=== PATIENT | male | born 1970 | race Hispanic/Latino ===

== ENCOUNTER 2016-10-17 02:54 | Emergency (ER) | payer OTHER ==
--- NOTE | 2016-10-17 03:00 | C.PDOC ---
History Of Present Illness Patient presents to the ER with a complaint of nausea and vomiting. Patient reports eating chicken at lunch followed by rosanna later on in the day; he states he has vomited numerous times and continues to feel nauseated. Denies abdominal pain or diarrhea. Time Seen by Provider: 10/17/16 03:00 History Per: Patient History/Exam Limitations: no limitations Onset/Duration Of Symptoms: Hrs Current Symptoms Are (Timing): Still Present Radiation Of Pain To:: None Quality Of Discomfort: Unable To Describe Associated Symptoms: Nausea, Vomiting. denies: Fever, Chills, Diarrhea Exacerbating Factors: None Alleviating Factors: None Recent travel outside of the [place]: No Past Medical History Reviewed: Historical Data, Nursing Documentation, Vital Signs Vital Signs: Last Vital Signs Temp 97.8 F 10/17/16 05:19 Pulse 56 L 10/17/16 05:19 Resp 18 10/17/16 05:19 BP 102/66 10/17/16 05:19 Pulse Ox 98 10/17/16 05:19 - Medical History PMH: No Chronic Diseases Surgical History: No Surg Hx Family History: States: No Known Family Hx - Social History Hx Tobacco Use: No Hx Alcohol Use: No Hx Substance Use: No - Immunization History Hx Tetanus Toxoid Vaccination: No Hx Influenza Vaccination: No Hx Pneumococcal Vaccination: No Review Of Systems Constitutional: Negative for: Fever, Chills Gastrointestinal: Positive for: Nausea, Vomiting. Negative for: Abdominal Pain , Diarrhea Physical Exam - Physical Exam Appears: Non-toxic Skin: Warm, Diaphoretic (Mildly), Pale (Mildly) Oral Mucosa: Moist Chest: Symmetrical, No Tenderness Cardiovascular: Rhythm Regular, No Murmur Respiratory: No Rales, No Rhonchi, No Wheezing Gastrointestinal/Abdominal: Soft, No Tenderness, Distention Neurological/Psych: Oriented x3 ED Course And Treatment - Laboratory Results Result Diagrams: 10/17/16 03:10 10/17/16 03:10 ECG: Interpreted By Me, Viewed By Me ECG Rhythm: Sinus Rhythm (47), Nonspecific Changes O2 Sat by Pulse Oximetry: 98 Pulse Ox Interpretation: Normal Progress Note: EKG, blood work, and urinalysis ordered. Toradol, zofran, protonix, and IV fluids administered. Disposition Counseled Patient/Family Regarding: Studies Performed, Diagnosis, Need For Followup, Rx Given - Disposition Referrals: [facility] [Outside] Disposition: HOME/ ROUTINE Disposition Time: 03:00 Condition: FAIR Additional Instructions: Please return if symptoms recur Prescriptions: Ondansetron ODT [Zofran ODT] 1 odt PO BID PRN #6 odt PRN Reason: Nausea/Vomiting Instructions: Food Poisoning (ED), Abdominal Pain (ED), Kidney Stones (DC) - Clinical Impression Clinical Impression: Abdominal pain, Nausea, Vomiting, Kidney stones - Scribe Statement The provider has reviewed the documentation as recorded by the Scribwilfrido Peña All medical record entries made by the Manishaibwilfrido were at my direction and personally dictated by me. I have reviewed the chart and agree that the record accurately reflects my personal performance of the history, physical exam, medical decision making, and the department course for this patient. I have also personally directed, reviewed, and agree with the discharge instructions and disposition.
[2016-10-17] MEDS ORDERED: Sodium Chloride 0.9% 1,000 ML IV ONE (03:01)
[2016-10-17 03:05] VITALS: BMI 24.5
[2016-10-17] MEDS ORDERED: Sodium Chloride 0.9% 1,000 ML ONE (03:09)
[2016-10-17 03:13] LABS: BASO # 0.1 K/uL (0.0-0.2); BASO % 0.8 % (0.0-2.0); EOS # 0.2 K/uL (0.0-0.7); EOS % 1.2 % (0.0-4.0); HEMATOCRIT 49.5 % (35.0-51.0); LYMPH # 5.7 K/uL (1.0-4.3); LYMPH % 39.6 % (20.0-40.0); MEAN CELL VOLUME 87.5 fL (80.0-94.0); MEAN CORPUSCULAR HEMOGLOBIN 28.4 pg (27.0-31.0); MEAN CORPUSCULAR HGB CONC 32.4 g/dL (33.0-37.0); MEAN PLATELET VOLUME 8.7 fL (7.2-11.7); MONO # 1.1 K/uL (0.0-0.8); MONO % 7.5 % (0.0-10.0); RED CELL DISTRIBUTION WIDTH 13.9 % (11.5-14.5); WHITE BLOOD COUNT 14.5 K/uL (4.8-10.8)
[2016-10-17 03:21] LABS: CHLORIDE 103 mmol/L (98-107); SODIUM 139 mmol/L (132-148)
[2016-10-17 03:22] LABS: POTASSIUM 3.2 mmol/L (3.6-5.2)
[2016-10-17 03:24] LABS: ALB/GLOB RATIO 1.2 (1.0-2.1); ALKALINE PHOSPHATASE 100 U/L (38-126); ALT/SGPT 36 U/L (21-72); AST/SGOT 19 U/L (17-59); BILIRUBIN,TOTAL 0.7 mg/dL (0.2-1.3); BLOOD UREA NITROGEN 15 mg/dL (9-20); CALCIUM 9.2 mg/dl (8.6-10.4); CARBON DIOXIDE 22 mmol/L (22-30); GFR AFRICAN-AMERICAN > 60; GLUCOSE,RANDOM 128 mg/dL (75-110); TOTAL PROTEIN 7.3 g/dL (6.3-8.3)
[2016-10-17] MEDS ORDERED: Iodixanol 320 MG/ML 100 ML BOTTLE IV ONE (04:25)
[2016-10-17 04:47] LABS: RBC URINE 28 /hpf (0-3); URINE BILIRUBIN NEGATIVE (NEGATIVE); URINE BLOOD 3+ (NEGATIVE); URINE COLOR Yellow (YELLOW); URINE GLUCOSE (UA) NORMAL (Normal); URINE KETONE NEGATIVE (NEGATIVE); URINE LEUKOCYTE ESTERASE NEG Leu/uL (Negative); URINE PROTEIN NEGATIVE (NEGATIVE); URINE UROBILINOGEN NORMAL mg/dL (0.2-1.0); WBC URINE 2 /hpf (0-5)
[2016-10-17 05:19] VITALS: BP 102/66; PULSE 56; RESP 18; TEMP 97.8; O2SAT 98
--- NOTE | 2016-10-17 05:27 | CT ---
EXAM: CT Abdomen and Pelvis With Intravenous Contrast EXAM DATE/TIME: 10/17/2016 4:12 AM CLINICAL HISTORY: 45 years old, male; Pain; Abdominal pain; Additional info: Abd pain, intractible vomiting TECHNIQUE: Axial computed tomography images of the abdomen and pelvis with intravenous contrast. All CT scans at this facility use one or more dose reduction techniques, viz.: automated exposure control; ma/kV adjustment per patient size (including targeted exams where dose is matched to indication; i.e. head); or iterative reconstruction technique. Coronal and sagittal reformatted images were created and reviewed. CONTRAST: 100 mL of [id number] administered intravenously. COMPARISON: No relevant prior studies available. FINDINGS: Lower thorax: No acute findings. ABDOMEN: Liver: Fatty liver. Gallbladder and bile ducts: Unremarkable. No calcified stones. No ductal dilation. Pancreas: Unremarkable. No mass. No ductal dilation. Spleen: Unremarkable. No splenomegaly. Adrenals: Unremarkable. No mass. Kidneys and ureters: Bilateral renal calculi of about 3 mm. No hydronephrosis. Symmetrical nephrograms. No perinephric edema. Stomach and bowel: Unremarkable. No dilatation of small or large bowel. No mucosal thickening. Appendix: Normal. PELVIS: Bladder: Tiny calcification in the dependent bladder. Reproductive: Unremarkable as visualized. ABDOMEN and PELVIS: Intraperitoneal space: Unremarkable. No free air. No significant fluid collection. Bones/joints: No acute fracture. Soft tissues: Unremarkable. Vasculature: Unremarkable. No abdominal aortic aneurysm. Lymph nodes: No enlarged lymph nodes. IMPRESSION: Bilateral renal and bladder calculi. No hydronephrosis.
--- NOTE | 2016-10-19 12:29 | CARD ---
APPROVED REPORT EKG Measurement Heart [id number] <Conclusion> Sinus bradycardia Otherwise normal ECG
== END 2016-10-17 05:48 | disposition home or self-care (01) ==
LOC: C.ER 02:54
DX: R11.2 Nausea with vomiting, unspecified (principal); R10.9 Unspecified abdominal pain; N20.0 Calculus of kidney
CPT/HCPCS: 74177; 80053; 81001; 83690; 85025; 93005; 96361; 96374; 96375; 99285; C9113; J1885; J2270; J2405; J7040; Q9967

== ENCOUNTER 2017-07-24 06:43 | Emergency (ER) | payer OTHER ==
[2017-07-24 06:44] VITALS: BMI 24.5
[2017-07-24 06:48] VITALS: O2SAT 98
--- NOTE | 2017-07-24 07:13 | C.PDOC ---
History Of Present Illness 46 y/o male presents to the ED for intermittent abdominal pain. Patient states the pain began 4-5 hours ago. He reports this is the third episode in 3 years. Patient describes the pain has bloating all over his belly. He states he has had 4 episodes of vomiting bile. Denies any dysuria or diarrhea. PMD: Dr. Calle Time Seen by Provider: 07/24/17 07:10 Chief Complaint (Nursing): Abdominal Pain History Per: Patient History/Exam Limitations: no limitations Onset/Duration Of Symptoms: Hrs Current Symptoms Are (Timing): Still Present Quality Of Discomfort: "Pain", Other (bloating) Associated Symptoms: Vomiting. denies: Diarrhea Recent travel outside of the [place]: No Past Medical History Reviewed: Historical Data, Nursing Documentation, Vital Signs Vital Signs: Last Vital Signs Temp 98.6 F 07/24/17 10:07 Pulse 67 07/24/17 10:07 Resp 18 07/24/17 10:07 BP 115/75 07/24/17 10:07 Pulse Ox 98 07/24/17 10:24 - Medical History PMH: No Chronic Diseases Surgical History: No Surg Hx Family History: States: No Known Family Hx - Social History Hx Tobacco Use: No Hx Alcohol Use: No Hx Substance Use: No - Immunization History Hx Tetanus Toxoid Vaccination: No Hx Influenza Vaccination: No Hx Pneumococcal Vaccination: No Review Of Systems Except As Marked, All Systems Reviewed And Found Negative. Gastrointestinal: Positive for: Vomiting, Abdominal Pain. Negative for: Diarrhea Genitourinary: Negative for: Dysuria Physical Exam - Physical Exam Appears: Non-toxic, No Acute Distress (vitals stable), Other (uncomfortable) Skin: Normal Color, Warm, Dry Head: Atraumatic, Normacephalic Eye(s): bilateral: Normal Inspection, PERRL, EOMI Cardiovascular: Rhythm Regular, No Murmur Respiratory: Normal Breath Sounds Gastrointestinal/Abdominal: Normal Exam, Soft, No Tenderness Neurological/Psych: Oriented x3 (awake and alert) ED Course And Treatment - Laboratory Results Result Diagrams: 07/24/17 07:41 07/24/17 07:41 ECG: Interpreted By Me, Viewed By Me Interpretation Of ECG: normal sinus rhthym, no st elevations or depressions Rate From EC O2 Sat by Pulse Oximetry: 98 (RA) Pulse Ox Interpretation: Normal Medical Decision Making Medical Decision Making: Time: 06:45 Impression: abdominal pain, distention constipation versus appendicitis versus gastroenteritis Initial Plan: * CMP * Drug Screen * Lipase Stat * CBC * IV Fluids * 1 tab PO * Maalox 30 ml PO * Abdomen Flat Plate * Urinalysis Previous records reviewed. Upon re-evaluation patient states he is feeling better but not great. Patient is requesting to be discharged. Instructed to drink lots of water and avoid soda , juice, bread, and rice. Was told to follow-up with PMD. Labs showed elevated white count and flat plate showed constipation. Scribe Attestation: Documented by Jack Lyman acting as a scribe Marcela Mcclellan MD. Scribwilfrido Attestation: All medical record entries made by the Scribe were at my direction and personally dictated by me. I have reviewed the chart and agree that the record accurately reflects my personal performance of the history, physical exam, medical decision making, and the department course for this patient. I have also personally directed, reviewed, and agree with the discharge instructions and disposition. Disposition Counseled Patient/Family Regarding: Studies Performed, Diagnosis, Need For Followup - Disposition Disposition: HOME/ ROUTINE Disposition Time: 10:17 Condition: STABLE Additional Instructions: You are leaving before your cat scan. Realize you have an elevated white blood cell count that could indicate infection. Please follow your doctor right away. Instructions: Constipation, Adult (DC) Forms: General Discharge Instructions - Clinical Impression Clinical Impression: Abdominal distension, Constipation
[2017-07-24] MEDS ORDERED: Sodium Chloride 0.9% 500 ML IV ONE (07:34)
[2017-07-24] MEDS ORDERED: Aluminum Hydroxide/Magnesium Hydroxide Susp (30 mL) PO STA (07:34)
[2017-07-24] MEDS ORDERED: Belladonna-Phenobarbital PO STA (07:34)
[2017-07-24] MEDS ORDERED: Belladonna-Phenobarbital ONE (07:48)
[2017-07-24] MEDS ORDERED: Aluminum Hydroxide/Magnesium Hydroxide Susp (30 mL) ONE (07:48)
[2017-07-24 07:49] LABS: BASO % 0.3 % (0.0-2.0); EOS % 0.1 % (0.0-4.0); HEMOGLOBIN 15.9 g/dL (12.0-18.0); LYMPH # 1.8 K/uL (1.0-4.3); LYMPH % 12.3 % (20.0-40.0); MEAN CELL VOLUME 89.2 fL (80.0-94.0); MEAN CORPUSCULAR HEMOGLOBIN 29.9 pg (27.0-31.0); MEAN CORPUSCULAR HGB CONC 33.6 g/dL (33.0-37.0); MEAN PLATELET VOLUME 9.4 fL (7.2-11.7); MONO # 0.7 K/uL (0.0-0.8); NEUT # 12.2 K/uL (1.8-7.0); NEUT % 82.3 % (50.0-75.0); NRBC % 0.1 % (0.0-2.0); RBC 5.31 Mil/uL (4.40-5.90); RED CELL DISTRIBUTION WIDTH 14.3 % (11.5-14.5); WHITE BLOOD COUNT 14.8 K/uL (4.8-10.8)
[2017-07-24] MEDS ORDERED: Iohexol 240 (50 ml) ONE (08:36)
--- NOTE | 2017-07-24 08:40 | RAD ---
Abdomen single frontal view History: Abdominal pain. Comparison: None available. Findings: Moderate fecal retention in the colon. Degenerative changes in the spine. Impression: Moderate fecal retention in the colon.
[2017-07-24 09:04] LABS: ALB/GLOB RATIO 1.2 (1.0-2.1); ALBUMIN 4.2 g/dL (3.5-5.0); ALT/SGPT 22 U/L (21-72); AST/SGOT 24 U/L (17-59); BLOOD UREA NITROGEN 14 mg/dL (9-20); GFR AFRICAN-AMERICAN > 60; GFR NON-AFRICAN AMERICAN > 60; LIPASE 81 U/L (23-300)
[2017-07-24 10:07] VITALS: BP 115/75; PULSE 67; RESP 18; TEMP 98.6
--- NOTE | 2017-07-27 13:45 | CARD ---
APPROVED REPORT EKG Measurement Heart [id number] <Conclusion> Normal sinus rhythm Normal ECG
== END 2017-07-24 10:38 | disposition home or self-care (01) ==
LOC: C.ER 06:43
DX: K59.00 Constipation, unspecified (principal); R14.0 Abdominal distension (gaseous)
CPT/HCPCS: 74018; 80053; 83690; 85025; 99284; J7040

== ENCOUNTER 2017-12-01 22:40 | Emergency (ER) | payer OTHER ==
[2017-12-01 22:41] VITALS: BMI 24.5
--- NOTE | 2017-12-01 23:04 | C.PDOC ---
History Of Present Illness 47 year old male presents to ED with complaints of fever beginning this afternoon with associated sore throat, cough and congestion. He reports yellow nasal mucus. Denies headache, ear pain, nausea, vomiting, SOB. Time Seen by Provider: 12/01/17 22:55 Chief Complaint (Nursing): Fever History Per: Patient History/Exam Limitations: no limitations Onset/Duration Of Symptoms: Hrs Current Symptoms Are (Timing): Still Present Location Of Pain: Throat, Sinus/es Associated Symptoms: Fever, Cough, Nasal Congestion Ear Symptoms: Bilateral: None Recent travel outside of the [place]: No Additional History Per: Patient Past Medical History Reviewed: Historical Data, Nursing Documentation, Vital Signs Vital Signs: Last Vital Signs Temp 101.6 F H 12/01/17 22:48 Pulse 117 H 12/01/17 22:48 Resp 19 12/01/17 22:48 BP 123/71 12/01/17 22:48 Pulse Ox 95 12/01/17 22:48 - Medical History PMH: Kidney Stones Surgical History: No Surg Hx Family History: States: Unknown Family Hx - Social History Hx Tobacco Use: No Hx Alcohol Use: No Hx Substance Use: No - Immunization History Hx Tetanus Toxoid Vaccination: No Hx Influenza Vaccination: Yes Hx Pneumococcal Vaccination: No Review Of Systems Constitutional: Positive for: Fever. Negative for: Chills ENT: Positive for: Nose Congestion, Throat Pain Respiratory: Positive for: Cough. Negative for: Shortness of Breath Gastrointestinal: Negative for: Nausea, Vomiting Skin: Negative for: Rash Neurological: Negative for: Headache, Dizziness Physical Exam - Physical Exam Appears: Non-toxic, No Acute Distress Skin: Normal Color, Warm, Dry Head: Atraumatic, Normacephalic Eye(s): bilateral: Normal Inspection Ear(s): Bilateral: Normal Nose: Other (nasal congestion) Oral Mucosa: Moist Throat: Normal, No Erythema, No Exudate Neck: Normal ROM, Supple Chest: Symmetrical Cardiovascular: Rhythm Regular Respiratory: Normal Breath Sounds, No Rales, No Rhonchi, No Wheezing, Other (dry cough) Extremity: Normal ROM, No Tenderness, No Swelling Neurological/Psych: Oriented x3, Normal Speech Gait: Steady ED Course And Treatment O2 Sat by Pulse Oximetry: 95 (ON RA) Pulse Ox Interpretation: Normal Medical Decision Making Medical Decision Making: Impression: fever, cough and congestion Tylenol given during triage. Patient appears well nontoxic and in no distress. Lungs clear bilaterally, no nuchal rigidity, or clinical signs of pneumonia or dehydration. Fever reduced. Advise patient on supportive treatment and to continue antipyretics. Can follow up with PMD in few days or return if symptoms worsen. Disposition Counseled Patient/Family Regarding: Diagnosis, Need For Followup, Rx Given - Disposition Referrals: Nathan Chapa MD [Medical Doctor] - Disposition: HOME/ ROUTINE Disposition Time: 23:02 Condition: STABLE Additional Instructions: You have viral upper respiratory infection. Take Tylenol or Motrin alternating every 4-6 hours for Fever 100.4F or higher. Rest and drink plenty of fluids. May use cool mist humidifier or vaporizer in room. Try taking over the counter antihistamine (Claritin, Joelle, Zyrtec), Decongestant or Cough medicine (Mucinex) as needed every 6-8 hours. If symptoms persist longer than 4-5 days follow up with your primary medical doctor or clinic for further evaluation. Return to the emergency department at any time if you develop severe headache, chest pain, shortness of breath or other concern Prescriptions: Benzonatate [Tessalon Perles] 100 mg PO TID #30 sgl Instructions: Viral Upper Respiratory Infection, Adult (DC) Forms: [facility] (Welsh), Work Excuse - POA Present On Arrival: None - Clinical Impression Clinical Impression: Fever, Upper respiratory infection - PA / ELECTION WATCHER / Resident Statement MD/DO has reviewed & agrees with the documentation as recorded. - Scribe Statement The provider has reviewed the documentation as recorded by the Scribe Brenton Carlson All medical record entries made by the Scribe were at my direction and personally dictated by me. I have reviewed the chart and agree that the record accurately reflects my personal performance of the history, physical exam, medical decision making, and the department course for this patient. I have also personally directed, reviewed, and agree with the discharge instructions and disposition.
[2017-12-01 23:21] VITALS: BP 127/79; PULSE 100; RESP 20; TEMP 99.5
[2017-12-02 00:09] VITALS: O2SAT 95
== END 2017-12-01 23:41 | disposition home or self-care (01) ==
LOC: C.ER 22:40
DX: J06.9 Acute upper respiratory infection, unspecified (principal); R50.9 Fever, unspecified

== ENCOUNTER 2018-04-04 15:46 | Emergency (ER) | payer OTHER ==
[2018-04-04 15:46] VITALS: BMI 24.5
[2018-04-04 15:52] VITALS: O2SAT 99
[2018-04-04] MEDS ORDERED: Sodium Chloride 0.9% 1,000 ML IV ONE ×2 (16:57→18:28)
[2018-04-04] MEDS ORDERED: Iohexol 350mg/ml 100 ML ONE (17:19)
[2018-04-04 17:24] LABS: BASO % 0.4 % (0.0-2.0); EOS % 0.3 % (0.0-4.0); HEMOGLOBIN 15.6 g/dL (12.0-18.0); LYMPH # 1.1 K/uL (1.0-4.3); LYMPH % 10.8 % (20.0-40.0); MEAN CELL VOLUME 90.1 fL (80.0-94.0); MEAN CORPUSCULAR HEMOGLOBIN 29.5 pg (27.0-31.0); MEAN CORPUSCULAR HGB CONC 32.7 g/dL (33.0-37.0); MEAN PLATELET VOLUME 9.3 fL (7.2-11.7); MONO # 1.2 K/uL (0.0-0.8); NEUT # 7.5 K/uL (1.8-7.0); NEUT % 76.5 % (50.0-75.0); RBC 5.28 Mil/uL (4.40-5.90); RED CELL DISTRIBUTION WIDTH 14.2 % (11.5-14.5); WHITE BLOOD COUNT 9.8 K/uL (4.8-10.8)
[2018-04-04 17:36] LABS: ALB/GLOB RATIO 1.3 (1.0-2.1); ALBUMIN 4.4 g/dL (3.5-5.0); ALT/SGPT 24 U/L (21-72); AST/SGOT 21 U/L (17-59); BLOOD UREA NITROGEN 21 mg/dL (9-20); CALCIUM 8.6 mg/dl (8.6-10.4); GFR NON-AFRICAN AMERICAN 59; LIPASE 85 U/L (23-300)
--- NOTE | 2018-04-04 18:04 | C.PDOC ---
History Of Present Illness 47 year old male presents to ED with complaint of experiencing vomiting episodes. Patient also complains of left sided back and abdominal pain. Patient states that he has dark urine with a foul smell. He has a history of kidney st ones. Patient took ibuprofen at home with no relief. He denies fever or chills. Time Seen by Provider: 04/04/18 16:18 Chief Complaint (Nursing): Abdominal Pain History Per: Patient History/Exam Limitations: no limitations, language barrier Onset/Duration Of Symptoms: Days (7) Current Symptoms Are (Timing): Still Present Location Of Pain/Discomfort: Other (left sided back and abdominal pain ) Quality Of Discomfort: "Pain" Associated Symptoms: Vomiting, Urinary Symptoms (dark urine with foul smell). denies: Fever, Chills Past Medical History Reviewed: Historical Data, Nursing Documentation, Vital Signs Vital Signs: Last Vital Signs Temp 98.3 F 04/04/18 15:49 Pulse 63 04/04/18 15:49 Resp 18 04/04/18 15:49 BP 123/82 04/04/18 15:49 Pulse Ox 99 04/04/18 15:49 - Medical History PMH: Kidney Stones Surgical History: No Surg Hx Family History: States: Unknown Family Hx - Social History Hx Tobacco Use: No Hx Alcohol Use: No Hx Substance Use: No - Immunization History Hx Tetanus Toxoid Vaccination: No Hx Influenza Vaccination: Yes Hx Pneumococcal Vaccination: No Review Of Systems Constitutional: Negative for: Fever, Chills, Weakness Cardiovascular: Negative for: Chest Pain Respiratory: Negative for: Cough, Shortness of Breath Gastrointestinal: Positive for: Vomiting, Abdominal Pain (left sided) Genitourinary: Positive for: Other (dark and foul smelling urine) Musculoskeletal: Positive for: Back Pain (left side of back ) Neurological: Negative for: Weakness, Numbness, Dizziness Physical Exam - Physical Exam Appears: Well, Non-toxic, No Acute Distress, Other (uncomfortable) Skin: Normal Color, Warm, Dry Head: Atraumatic, Normacephalic Neck: Normal ROM, Supple Chest: Symmetrical, No Deformity Respiratory: No Accessory Muscle Use, No Rales, No Rhonchi, No Stridor Gastrointestinal/Abdominal: No Bowel Sounds (hypoactive bowel sounds), Tenderness (mild left lower quadrant tenderness), No Guarding, No Rebound Back: CVA Tenderness (left-sided) Extremity: Capillary Refill (< 2 seconds) Extremity: Bilateral: Atraumatic, Normal Color And Temperature Pulses: Left Radial: Normal, Right Radial: Normal Neurological/Psych: Oriented x3, Normal Speech, Normal Cognition ED Course And Treatment - Laboratory Results Result Diagrams: 04/04/18 17:18 04/04/18 17:18 Lab Results: Total Bilirubin 0.3 mg/dL (0.2-1.3) 04/04/18 17:18 AST 21 U/L (17-59) 04/04/18 17:18 ALT 24 U/L (21-72) 04/04/18 17:18 Alkaline Phosphatase 86 U/L (38-126) 04/04/18 17:18 Total Protein 7.7 g/dL (6.3-8.3) 04/04/18 17:18 Albumin 4.4 g/dL (3.5-5.0) 04/04/18 17:18 Globulin 3.3 gm/dL (2.2-3.9) 04/04/18 17:18 Albumin/Globulin Ratio 1.3 (1.0-2.1) 04/04/18 17:18 Lipase 85 U/L (23-300) 04/04/18 17:18 O2 Sat by Pulse Oximetry: 99 (RA) - CT Scan/US Abdomen/Pelvis Other Rad Studies (CT/US): Interpreted By Me, Read By Radiologist CT/US Interpretation: IMPRESSION: Thick-walled under distended urinary bladder with 4 mm calculus at the right UVJ. 2 mm calculus at the distal left ureter just proximal to the UVJ. 4 mm calculus at the distal left ureter. Mild left hydroureteronephrosis. No right-sided hydroureteronephrosis. Enlarged prostate gland. Recommend correlation with PSA. Additional findings as above. Medical Decision Making Medical Decision Making: Impression: 47 year old male with complaint of left sided back and abdominal pain. Plan: CT Abd/ Pelvis ordered for patient Labs ordered with UA fpr patient. Pepcid IVP, NaCl IV, and Zofran IVP given to patient. Differential: Kidney stones, diverticulitis, cholitis 1844 ct shows patch infiltrate in lingula/lll as well as stones on left and right side. will give dose fllomax in ed and dose antibiotics, pt advised to strain all urine and keep stone to bring to urologist. Disposition Counseled Patient/Family Regarding: Studies Performed, Diagnosis, Need For Followup, Rx Given - Disposition Referrals: Chaka Spann Jr., MD [Staff Provider] - Disposition: HOME/ ROUTINE Disposition Time: 19:06 Condition: IMPROVED Additional Instructions: Drink increased fluids. Take medications as prescribed Strain all urine and keep stone when they pass to bring to urologist; recommend seeing urologist in next few days, given enlarged prostate, recommend PSA tesing. Return to ER for any worse symptoms, worse pain, persistent vomiting or any other problems. Follow up with primary care doctor in 1-2 days. Bring copy of ct scan results with you to both doctors. Prescriptions: Azithromycin [Zithromax] 250 mg PO DAILY #4 tab Ibuprofen [Motrin] 600 mg PO TID #30 tab Tamsulosin HCl [Flomax] 0.4 mg PO DAILY #14 cap.er.24h Instructions: Pneumonia, Adult (DC), Kidney Stones (DC), How to Strain Your Urine, Kidney Stone Diet Forms: [facility] (Tristanian), General Discharge Instructions, Work Excuse - Clinical Impression Clinical Impression: Bilateral kidney stones, Pneumonia - PA / BI DATA MODELER / Resident Statement MD/DO has reviewed & agrees with the documentation as recorded. (Patricia Parker) - Scribe Statement The provider has reviewed the documentation as recorded by the Scribe (Patricia Parker) All medical record entries made by the Scribe were at my direction and personally dictated by me. I have reviewed the chart and agree that the record accurately reflects my personal performance of the history, physical exam, medical decision making, and the department course for this patient. I have also personally directed, reviewed, and agree with the discharge instructions and disposition.
[2018-04-04 18:09] LABS: URINE BILIRUBIN NEGATIVE (NEGATIVE); URINE CLARITY CLEAR (Clear); URINE GLUCOSE (UA) NEGATIVE (Normal)
[2018-04-04 18:10] LABS: PH,URINE 5.5 (5.0-8.0); URINE BLOOD LARGE (NEGATIVE); URINE LEUKOCYTE ESTERASE NEGATIVE Leu/uL (Negative); URINE PROTEIN TRACE mg/dL (NEGATIVE); URINE UROBILINOGEN 0.2 mg/dL (0.2-1.0)
--- NOTE | 2018-04-04 18:48 | CT ---
Date of service: 04/04/2018 PROCEDURE: CT Abdomen and Pelvis with contrast HISTORY: abd pain COMPARISON: CT abdomen and pelvis with IV contrast performed 10/17/16 TECHNIQUE: Contrast dose: 100 mL Omnipaque 350 IV Radiation dose: Total exam DLP = 235.99 mGy-cm. This CT exam was performed using one or more of the following dose reduction techniques: Automated exposure control, adjustment of the mA and/or kV according to patient size, and/or use of iterative reconstruction technique. FINDINGS: LOWER THORAX: Mild patchy infiltrates within left lower lobe and lingula. No visible pleural effusion or pneumothorax. LIVER: Unremarkable. GALLBLADDER AND BILE DUCTS: Unremarkable. PANCREAS: Unremarkable. SPLEEN: Tiny probable splenules. Otherwise unremarkable. ADRENALS: Unremarkable. KIDNEYS AND URETERS: Thick-walled under distended urinary bladder with 4 mm calculus at the right UVJ. 2 mm calculus at the distal left ureter just proximal to the UVJ. 4 mm calculus at the distal left ureter. Mild left hydroureteronephrosis. No right-sided hydroureteronephrosis. The kidneys enhance symmetrically. VASCULATURE: No aortic aneurysm. No atherosclerotic calcification or mural plaque present. BOWEL: Stomach is nondistended. Lack of oral contrast limits evaluation for bowel pathology. Bowel loops appear within normal limits of caliber without evidence of obstruction. APPENDIX: The appendix appears within normal limits of caliber. No secondary signs of acute appendicitis. PERITONEUM: No significant free fluid. No definite free air. LYMPH NODES: No bulky adenopathy identified. BLADDER: See above. REPRODUCTIVE: The prostate gland measures approximately 3.8 x 4.0 cm. BONES: No acute osseous abnormality is detected. OTHER FINDINGS: None. IMPRESSION: Thick-walled under distended urinary bladder with 4 mm calculus at the right UVJ. 2 mm calculus at the distal left ureter just proximal to the UVJ. 4 mm calculus at the distal left ureter. Mild left hydroureteronephrosis. No right-sided hydroureteronephrosis. Enlarged prostate gland. Recommend correlation with PSA. Additional findings as above.
[2018-04-04 19:27] VITALS: BP 104/68; PULSE 80; RESP 20; TEMP 97.8
== END 2018-04-04 19:33 | disposition home or self-care (01) ==
LOC: C.ER 15:46
DX: N13.2 Hydronephrosis with renal and ureteral calculous obstruction (principal); J18.9 Pneumonia, unspecified organism; Z87.442 Personal history of urinary calculi
CPT/HCPCS: 74177; 80053; 81001; 83690; 85025; 87086; 96361; 96374; 96375; 99285; J1885; J2405; J7030; Q9967